=== PATIENT | female | born 1980 | race Hispanic/Latino ===

== ENCOUNTER → 2017-04-11 | Outpatient (CLI) | payer MEDICAID ==
[~2017-04-11] MED LIST: BIOT5000 PO; ONDA4TAB9 PO; PANT40TA25 PO; nexium
== END | disposition home or self-care (01) ==
LOC: RAH 13:59
PROVIDERS: ATTEND Family Medicine
DX: N63.10 Unspecified lump in the right breast, unspecified quadrant (principal); N63.20 Unspecified lump in the left breast, unspecified quadrant; R92.8 Other abnormal and inconclusive findings on diagnostic imaging of breast
CPT/HCPCS: 76641; 77066

== ENCOUNTER → 2017-04-25 | Outpatient (CLI) | payer MEDICAID ==
[~2017-04-25] MED LIST changes: +EPINEPHRINE 1 MG/ML AMPULE ONE; +SODIUM BICARB 50MEQ 50ML VIAL ONE
[2017-04-25 10:09] LABS: INR 0.91 (0.85-1.15); PARTIAL THROMBOPLASTIN TIME 27.1 SEC (26.3-35.5); PROTHROMBIN TIME 9.6 SEC (9.6-11.6)
== END | disposition home or self-care (01) ==
LOC: RAH 09:20
PROVIDERS: ATTEND Family Medicine
DX: D24.2 Benign neoplasm of left breast (principal); R92.0 Mammographic microcalcification found on diagnostic imaging of breast
CPT/HCPCS: 19083; 36415; 76942; 85610; 85730; 88305; A4215 ×3; J0171; J3490

== ENCOUNTER 2017-08-15 08:59 | Day surgery (SDC) | payer MEDICAID ==
[~2017-08-15] VITALS: Ht 162.6 cm; Wt 53.0 kg
[~2017-08-15 08:59] MED LIST changes: -BIOT5000 PO; -EPINEPHRINE 1 MG/ML AMPULE ONE; -ONDA4TAB9 PO; -PANT40TA25 PO; -SODIUM BICARB 50MEQ 50ML VIAL ONE; +SODIUM CHLORIDE 0.9% 1000ML 1,000 ML IV ONE
[2017-08-15 09:20] VITALS: BP 83/54
[2017-08-15 10:51] VITALS: BP 80/40
[2017-08-15 10:55] VITALS: BP 80/49
[2017-08-15 11:00] VITALS: BP 92/54
[2017-08-15 11:05] VITALS: BP 85/64
[2017-08-15 11:10] VITALS: BP 87/55
== END 2017-08-15 11:20 | disposition home or self-care (01) ==
LOC: DAH 08:59
PROVIDERS: ATTEND Internal Medicine Gastroenterology
DX: K29.50 Unspecified chronic gastritis without bleeding (principal); K31.9 Disease of stomach and duodenum, unspecified; F17.210 Nicotine dependence, cigarettes, uncomplicated; R63.0 Anorexia; Z90.49 Acquired absence of other specified parts of digestive tract; Z98.890 Other specified postprocedural states; Z88.8 Allergy status to other drugs, medicaments and biological substances
CPT/HCPCS: 43239; 88305; 88312; 88342; J7030

== ENCOUNTER 2020-11-03 06:59 | Day surgery (SDC) | payer OTHER ==
[~2020-11-03] VITALS: Ht 165.1 cm; Wt 58.4 kg
[~2020-11-03 06:59] MED LIST changes: +0.9%NACL 1000ML 1,000 ML IV ONE; -SODIUM CHLORIDE 0.9% 1000ML 1,000 ML IV ONE
[2020-11-03 07:52] VITALS: BP 115/70
[2020-11-03] MEDS ORDERED: PROP40TA7 PO (08:11)
[2020-11-03] MEDS ORDERED: PROPOFOL 10 MG/ML 20ML VIAL IV ONE ×2 (09:10)
[2020-11-03 10:26] VITALS: BP 103/42
[2020-11-03 10:31] VITALS: BP 93/56
[2020-11-03 10:36] VITALS: BP 99/52
[2020-11-03 10:41] VITALS: BP 97/52
[2020-11-03 10:46] VITALS: BP 97/52
== END 2020-11-03 11:00 | disposition home or self-care (01) ==
LOC: DAH 06:59 → ENDO 06:59
PROVIDERS: ATTEND Internal Medicine Gastroenterology
DX: R10.13 Epigastric pain (principal); K29.70 Gastritis, unspecified, without bleeding; R13.10 Dysphagia, unspecified; Z20.822 Contact with and (suspected) exposure to COVID-19
CPT/HCPCS: 43239; 87635; A4215 ×2; A4221; A4222; A4223; A4606; A4620; A4657; A4663; C9803; J2704 ×2; J7030

== ENCOUNTER 2022-06-15 02:54 | Emergency (ER) | payer OTHER ==
[~2022-06-15] VITALS: Ht 165.1 cm; Wt 50.3 kg
[~2022-06-15 02:54] MED LIST changes: -0.9%NACL 1000ML 1,000 ML IV ONE; +PROP40TA7 PO
[2022-06-15] MEDS ORDERED: CYCL10TA16 PO (03:22)
[2022-06-15] MEDS ORDERED: IBUP-2070 PO (03:22)
[2022-06-15] MEDS ORDERED: ORPHENADRINE CITRATE 30 MG/ML ML IM ONE (03:30)
[2022-06-15] MEDS ORDERED: KETOROLAC 60 MG VIAL (30MG/ML) IM ONE (03:30)
[2022-06-15 04:55] VITALS: BP 105/59
== END 2022-06-15 04:56 | disposition home or self-care (01) ==
LOC: EDH 02:54
DX: S16.1XXA Strain of muscle, fascia and tendon at neck level, initial encounter (principal); Z79.1 Long term (current) use of non-steroidal anti-inflammatories (NSAID); Z88.5 Allergy status to narcotic agent; Z90.49 Acquired absence of other specified parts of digestive tract; V89.2XXA Person injured in unspecified motor-vehicle accident, traffic, initial encounter; Y93.89 Activity, other specified; Y92.89 Other specified places as the place of occurrence of the external cause; Y99.8 Other external cause status
CPT/HCPCS: 99284; 72040; 96372 ×2; J1885